=== PATIENT | male | born 1995 | race Caucasian/White ===

== ENCOUNTER 2020-06-25 07:58 | Emergency (ER) | payer BC, OTHER ==
[2020-06-25 08:08] VITALS: BP 106/65; TEMP 98.5; BMI 29.7
[2020-06-25] MEDS ORDERED: IBUPROFEN 400 MG TABLET (FP) PO ONE ×2 (08:13→08:36)
[2020-06-25 09:57] LABS: EPITHELIAL CELLS RARE /hpf
[2020-06-25 09:58] LABS: URINE MUCUS 1+
[2020-06-25] MEDS ORDERED: SODIUM CHLORIDE 1,000 ML IV STA (09:58)
[2020-06-25 10:40] LABS: BASO % 0.9 % (0-2.0); EOS % 0.3 % (0-4.5); HEMATOCRIT 49.9 % (35.4-49); HEMOGLOBIN 16.7 GM/dl (11.7-16.9); LYMPH % 14.2 % (8-40); MCH 29.8 pg (25.7-33.7); MCHC 33.5 g/dl (32.0-35.9); MONO % 9.2 % (3.8-10.2); NEUT % 75.4 % (42.8-82.8); PLATELET COUNT 296 K/MM3 (134-434); RDW 12.4 % (11.9-15.9); WHITE BLOOD COUNT 13.3 K/mm3 (4.0-10.8)
[2020-06-25 10:45] LABS: ALBUMIN 4.7 g/dl (3.4-5.0); BILIRUBIN,TOTAL 1.1 mg/dl (0.2-1); CALCIUM 8.9 mg/dl (8.5-10); CREATININE 1.2 mg/dl (0.55-1.3); POTASSIUM 4.5 mmol/L (3.5-5.1); TOT PROT 7.6 g/dl (6.4-8.2)
[2020-06-25 15:39] VITALS: PULSE 99
== END 2020-06-25 15:44 | disposition home or self-care (01) ==
LOC: FER 07:58
PROC: 3E0337Z Introduction of Electrolytic and Water Balance Substance into Peripheral Vein, Percutaneous Approach (ICD-10-PCS; principal; 2020-06-25)
DX: M54.5 Low back pain (principal); S20.20XA Contusion of thorax, unspecified, initial encounter; W19.XXXA Unspecified fall, initial encounter
CPT/HCPCS: 36415; 72100-TC-FY; 74177-TC; 80053; 81003; 81015; 85025; 99285-25